=== PATIENT | male | born 1990 | race Two or more races ===

== ENCOUNTER 2023-08-23 10:23 | Outpatient (AMB) | payer OTHER, SELFPAY ==
[2023-08-23 10:24] VITALS: BP 132/80; BMI 32.4
--- NOTE | 2023-08-23 10:24 | A.OFFPC_ITS ---
Vital Signs 08/23/23 10:24 Height 5 ft 11 in Weight 232 lb 0.4 oz BMI 32.4 BP 132/80 Blood Pressure Location Lt brachial Position Sitting Pulse Source Pulse Oximeter Oxygen Delivery Method Room Air Intake Visit Reasons: est care/ annual physical/ discuss ent referral Conference Producer Required: No Allergies No Known Allergies Allergy (Verified 08/23/23 10:37) Medication List - Last Reconciled 08/23/23 by STEFANIA Luna No Known Home Meds Tobacco use date assessed: 08/23/23 Dental Screening Dental Screen Date: 08/23/23 Did you have a dental visit in the last 12 months?: Yes Did you have a dental problem in the last 6 months where you did not have access to dental care?: No Was dental information given to patient?: Patient has dentist HPI HPI Comments History of Present Illness Details 33-year-old male new patient presents to [facility] to establish care. Past medical history significant for asthma. Patient reports does not require rescue inhaler frequently states uses inhaler 1 times per month. Patient reports history of enlarged adenoids states at age 13 he had laser surgery in [place] for this, but was told that and maybe, problem again later in life. Patient reports he does snore a lot and would like to see ENT you for further evaluation of his adenoids. Referral entered. Patient denies any daytime somnolence, headaches or periods of apnea while sleeping at this time I do not feel it sleep study is required. Patient declined flu shot. Eye exam recommended. Fasting labs ordered. [facility] Medical History (Updated 08/23/23 @ 10:55 by STEFANIA Luna) Asthma Family History (Updated 08/23/23 @ 10:43 by STEFANIA Luna) Mother Leukemia Father Hypertension Social History (Updated 08/23/23 @ 10:43 by STEFANIA Luna) Housing: Apartment Alcohol intake: current Alcohol intake frequency: a few times a week Alcohol type: wine Patient Tobacco Use Status: Never used Tobacco Substance Use Type: Marijuana service: No Current occupational status: employed Cognitive needs: No Hearing needs: No Vision needs: No Questionnaire PHQ-9 Over the last 2 weeks, how often have you been bothered by any of the following problems? 1. Little interest or pleasure in doing things: not at all 2. Feeling down, depressed, or hopeless: not at all 3. Trouble falling or staying asleep, or sleeping too much: not at all 4. Feeling tired or having little energy: not at all 5. Poor appetite or overeating: not at all 6. Feeling bad about yourself - or that you are a failure or have let yourself or your family down: not at all 7. Trouble concentrating on things, such as reading the newspaper or watching television: not at all 8. Moving or speaking so slowly that other people could have noticed. Or the opposite - being so fidgety or restless that you have been moving around a lot more than usual: not at all 9. Thoughts that you would be better off or of hurting yourself in some way: not at all Total score: 0 Depression Screening Interpretation: Negative Depression Screening Done: Yes 37931 - PHQ-9 Billing: Yes Source: Developed by Drs. Orion Fontaine, Gia Morris, Rob Valdovinos and colleagues, with an educational jacob from [employer]. AUDIT C Alcohol Use Questionnaire (AUDIT-C) 1. How often do you have a drink containing alcohol?: 2-3 times a week 2. How many drinks containing alcohol do you have on a typical day when you are drinking?: 1 or 2 3. How often do you have six or more drinks on one occasion?: Never Total Score: 3 OLIVIER-7 AMB Questionnaire OLIVIER-7 Date OLIVIER - 7 assessed: 08/23/23 Feeling nervous, anxious, or on edge: 0 = Not at all Not being able to stop or control worryin = Not at all Worrying too much about different things: 0 = Not at all Trouble relaxin = Not at all Being so restless that it is hard to sit still: 0 = Not at all Becoming easily annoyed or irritable: 0 = Not at all Feeling afraid as if something awful might happen: 0 = Not at all Total OLIVIER-7 score (0-4 normal; 5-9 mild; 10-14 moderate; 15-21 severe): 0 Source: Developed by Drs. Orion Fontaine, Gia Morris, Rob Valdovinos and colleagues, with an educational jacob from [employer]. OLIVIER-7 Assessment Billing OLIVIER-7 Assessment Tool: OLIVIER-7 Assessment 97354 Review of Systems Const Denies chills, Denies fatigue, Denies fever(s) and Denies poor appetite Eyes Denies no additional complaints ENT Reports Normal hearing present Card Denies chest pain, Denies syncope, Denies rapid heart rate and Denies dyspnea Resp Denies cough and Denies dyspnea GI Denies change in stool character, Denies constipation, Denies diarrhea, Denies nausea and Denies vomiting Denies dysuria, Denies urinary frequency and Denies urinary urgency Neuro Reports Normal hearing present, Denies confusion and Denies syncope Psych Denies confusion Endo Denies fatigue Physical exam (Primary Care) Vital Signs: Last Vital Signs BP 132/80 08/23/23 10:24 Oxygen Delivery Method Room Air 08/23/23 10:24 BMI result Body Mass Index 32.4 Tobacco/Smoking Status: Tobacco use Status Tobacco use date assessed 08/23/23 08/23/23 10:25 Patient Tobacco Use Status Never used Tobacco 08/23/23 10:25 PHQ-9: PHQ-9 Score PHQ-9: Total score 0 08/23/23 10:25 Depression Screening Interpretation: Negative Const General: No confusion Orientation/consciousness: No confusion HENMT Head: Yes normocephalic and Yes atraumatic Ears: external ears normal and TM's normal bilaterally General nose exam: Normal external nose present and Normal nasal mucous membranes and turbinates present Face and sinus: Yes normal facial exam and Yes sinuses nontender Mouth: moist mucous membranes Throat: Yes tonsils normal Eyes Conjunctivae: conjunctivae normal Sclerae: sclerae normal Pupils: Equal, round and reactive pupils present and Pupils normal by confrontation EOM: EOMs intact bilaterally Direct Ophthalmoscopy: normal light reflex Neck Neck: Yes no lymphadenopathy and Yes supple Thyroid: Thyroid normal Chest Chest palpation & inspection: normal inspection of the chest Resp Effort & Inspection: normal respiratory effort Auscultation: clear to auscultation bilaterally, no crackles, no rhonchi and no wheezes Cardio Rate: regular rate Rhythm: regular rhythm Peripheral pulses: radial pulses present and dorsalis pedis present GI Inspection: Yes normal to inspection Palpation (GI): Soft to palpation, nontender and No hepatosplenomegaly present Auscultation: normoactive bowel sounds Skin General skin exam: no rashes or lesions noted Neuro General: No confusion Cranial nerves: Yes Equal, round and reactive pupils present and Yes Normal hearing present Cognition (Neuro): normal cognition Gait exam (Neuro): Normal gait present Motor exam (neuro): 5/5 motor strength present throughout Deep tendon reflexes (DTR's): Right brachioradialis reflex intensity grade: 2+, Left brachioradialis reflex intensity grade: 2+, Right patellar reflex intensity grade: 2+ and Left patellar reflex intensity grade: 2+ Extrem General: No edema Assessment and Plan Assessment & Plan (1) Adenoid hypertrophy: Code(s): J35.2 - Hypertrophy of adenoids Plan: Referral entered to [facility]. (2) Physical exam, annual: Code(s): Z00.00 - Encounter for general adult medical examination without abnormal findings Plan: Follow-up 1 year for annual exam. (3) Asthma: Code(s): J45.909 - Unspecified asthma, uncomplicated Plan: Albuterol inhaler sent to patient's pharmacy. Plan Follow up in 1 year. Orders: Orders Complete Blood Count no Diff Today Z13.0 - Encounter for screening for diseases of the blood and blood-forming organs and certain disorders involving the immune mechanism Comprehensive [place]. Panel Fast Today Z00.00 - Encounter for general adult medical examination without abnormal findings TSH reflex Free T4 Today Z13.29 - Encounter for screening for other suspected endocrine disorder Lipid Panel Today Z13.220 - Encounter for screening for lipoid disorders Referrals Ear/Nose/Throat Referral J35.2 - Hypertrophy of adenoids Medications: New albuterol sulfate 90 mcg/actuation 2 puffs inhalation Q4-6H PRN 6.7 grams 0RF shortness of breath or wheezing J45.909 - Unspecified asthma, uncomplicated Coding Level of Care Code New Pt Prev Care 18-39yr([id number] Diagnoses Adenoid hypertrophy J35.2 Physical exam, annual Z00.00 Asthma J45.909 Additional Codes OLIVIER-7 Assessment Billing - OLIVIER-7 Assessment Tool: OLIVIER-7 Assessment 26232 ([id number])
== END 2023-08-23 10:53 | disposition home or self-care (01) ==
PROVIDERS: PCP Nurse Practitioner Family; Visit Provider Nurse Practitioner Family
DX: J35.2 Hypertrophy of adenoids (principal); Z00.00 Encounter for general adult medical examination without abnormal findings; J45.909 Unspecified asthma, uncomplicated
CPT/HCPCS: 99385

== ENCOUNTER 2023-09-05 07:54 | Outpatient (REF) | payer OTHER, SELFPAY ==
[2023-09-05 10:16] LABS: Hematocrit 50.5 % (42.0-52.0); Hemoglobin 16.6 g/dl (14.0-18.0); Mean Corpuscular HGB Conc 32.9 g/dl (31.0-36.0); Mean Corpuscular Hemoglobin 28.6 pg (27.0-33.0); Mean Corpuscular Volume 86.9 fL (80.0-98.0); Mean Platelet Volume 10.5 fL (9.4-12.4); Platelet Count 269 X10*3/uL (160-400); Red Blood Count 5.81 X10*6/uL (4.60-5.80); Red Cell Distribution Width 12.8 % (11.0-16.0); White Blood Count 5.5 X10*3/uL (4.8-10.8)
[2023-09-05 10:57] LABS: Alanine Aminotransferase 29 U/L (0-40); Albumin Level 4.5 g/dL (3.5-5.0); Alkaline Phosphatase 112 U/L (39-117); Anion Gap 12 (12-20); Aspartate Amino Transferase 26 U/L (5-37); Bilirubin Total 0.4 mg/dL (0.0-1.0); Blood Urea Nitrogen 12 mg/dL (9-16); Calcium 9.6 mg/dL (8.4-10.2); Carbon Dioxide 27 mmol/L (22-29); Chloride 105 mmol/L (96-108); Cholesterol 227 mg/dL (<200); Estimated Glomerular Filt Rate > 60; Glucose Fasting 95 mg/dL (60-99); HDL Cholesterol 31 mg/dL (>40); LDL Cholesterol Calculated 134 mg/dL (<100); Sodium 140 mmol/L (135-145); Triglycerides 314 mg/dL (<150)
[2023-09-05 11:16] LABS: TSH reflex Free T4 1.71 uIU/mL (0.32-4.0)
== END 2023-09-05 07:55 | disposition home or self-care (01) ==
LOC: HO.LAB 07:54
PROVIDERS: PCP Nurse Practitioner Family; Visit Provider Nurse Practitioner Family
DX: Z00.00 Encounter for general adult medical examination without abnormal findings (principal); Z13.0 Encounter for screening for diseases of the blood and blood-forming organs and certain disorders involving the immune mechanism; Z13.220 Encounter for screening for lipoid disorders; Z13.29 Encounter for screening for other suspected endocrine disorder
CPT/HCPCS: 36415; 80053; 80061; 84443; 85027

== ENCOUNTER 2023-11-26 10:00 | Outpatient (AMB) | payer OTHER, SELFPAY ==
--- NOTE | 2023-11-26 10:14 | MHC.PC.OV ---
Vital Signs 11/26/23 10:15 Height 5 ft 11 in Weight 230 lb BMI 32.1 BP 122/66 Blood Pressure Location Lt brachial Position Sitting Pulse 77 Pulse Source Pulse Oximeter Pulse Oximetry (%) 97 Oxygen Delivery Method Room Air Intake Visit Reasons: follow up/referral Intake Note: Patient is here to follow up on insomnia and medication review. Requesting for sleep study for possible sleep apena Referral Coordinator Required: No Driver/Sales Workers: Not Required per policy Accompanied by: Self / Same As Patient Allergies No Known Allergies Allergy (Verified 11/26/23 10:15) Tobacco use date assessed: 11/26/23 Dental Screening Dental Screen Date: 11/26/23 Did you have a dental visit in the last 12 months?: No Did you have a dental problem in the last 6 months where you did not have access to dental care?: No Was dental information given to patient?: No HPI follow up/referral HPI Details 33-year-old male presents to the office to discuss his medical problems. I am assuming his care as his previous provider has left the practice. Patient was given an ENT referral to have an evaluation of his nasal septum. He reports noisy breathing and frequent closure of 1 of the nostrils. The appointment still has not materialized. He has had adenoidectomy as a young child. Of late, he is complaining of fatigue. Has noisy breathing at night. Does not feel refreshed when he wakes up. [facility] Medical History (Updated 11/26/23 @ 11:11 by Joseluis Garcia MD) Deviated nasal septum Obstructive sleep apnea Asthma Surgical History (Updated 11/26/23 @ 10:20 by MARCELO Shabazz) No pertinent past surgical history Family History (Updated 11/26/23 @ 10:14 by MARCELO Shabazz) Mother Leukemia Father Hypertension Social History (Updated 11/26/23 @ 10:20 by MARCELO Shabazz) Housing: Apartment Alcohol intake: current Alcohol intake frequency: a few times a week Alcohol type: wine Patient Tobacco Use Status: Never used Tobacco e-Cigarette/Vaping Use: Never Used Second Hand Smoke Exposure: Yes Substance Use Type: Marijuana service: No Current occupational status: employed Cognitive needs: No Hearing needs: No Vision needs: No Questionnaire PHQ-9 Over the last 2 weeks, how often have you been bothered by any of the following problems? 1. Little interest or pleasure in doing things: not at all 2. Feeling down, depressed, or hopeless: not at all 3. Trouble falling or staying asleep, or sleeping too much: not at all 4. Feeling tired or having little energy: not at all 5. Poor appetite or overeating: not at all 6. Feeling bad about yourself - or that you are a failure or have let yourself or your family down: not at all 7. Trouble concentrating on things, such as reading the newspaper or watching television: not at all 8. Moving or speaking so slowly that other people could have noticed. Or the opposite - being so fidgety or restless that you have been moving around a lot more than usual: not at all 9. Thoughts that you would be better off or of hurting yourself in some way: not at all Total score: 0 Depression Screening Interpretation: Negative Depression Screening Done: Yes Source: Developed by Drs. Orion Fontaine, Gia Morris, Rob Valdovinos and colleagues, with an educational jacob from [employer]. Thrive Questionnaire Date Thrive assessed: 11/26/23 I am a: Patient What is your living situation today?: I have a steady place to live Within the past 12 months, did the food you bought not last and you didn't have the money to get more?: Never true Within the past 12 months, did you worry whether your food would run out before you got money to buy more?: Never true Do you have trouble paying for medicines?: No Do you have trouble getting transportation to medical appointments?: No Do you have trouble paying your heating and electricity bill?: No Do you have trouble taking care of your child, family member or friend?: No Do you have trouble with day-to-day activities such as bathing, preparing meals, shopping, managing finances, etc.?: No Are you currently unemployed and looking for a job?: No Are you interested in more education?: No Currently or been in a relationship where the following occur: no concerns reported THRIVE Score: 0 AUDIT C Alcohol Use Questionnaire (AUDIT-C) 1. How often do you have a drink containing alcohol?: 2-3 times a week 2. How many drinks containing alcohol do you have on a typical day when you are drinking?: 1 or 2 Total Score: 3 OLIVIER-7 AMB Questionnaire OLIVIER-7 Date OLIVIER - 7 assessed: 11/26/23 Feeling nervous, anxious, or on edge: 0 = Not at all Not being able to stop or control worryin = Not at all Worrying too much about different things: 0 = Not at all Trouble relaxin = Not at all Being so restless that it is hard to sit still: 0 = Not at all Becoming easily annoyed or irritable: 0 = Not at all Feeling afraid as if something awful might happen: 0 = Not at all Total OLIVIER-7 score (0-4 normal; 5-9 mild; 10-14 moderate; 15-21 severe): 0 Source: Developed by Drs. Orion Fontaine, Gia Morris, Rob Valdovinos and colleagues, with an educational jacob from [employer]. Physical exam (Primary Care) Vital Signs: Last Vital Signs Pulse 77 11/26/23 10:15 BP 122/66 11/26/23 10:15 Pulse Ox 97 11/26/23 10:15 Oxygen Delivery Method Room Air 11/26/23 10:15 BMI result Body Mass Index 32.1 Tobacco/Smoking Status: Tobacco use Status Tobacco use date assessed 11/26/23 11/26/23 10:22 Patient Tobacco Use Status Never used Tobacco 11/26/23 10:22 e-Cigarette/Vaping Use Never Used 11/26/23 10:22 PHQ-9: PHQ-9 Score PHQ-9: Total score 0 11/26/23 10:22 Depression Screening Interpretation: Negative Thrive Assessment: Date of Thrive Assessment Date Thrive assessed 11/26/23 11/26/23 10:22 Currently or been in a relationship where the following occur: no concerns reported Const General: cooperative and healthy appearing Nutritional Appearance: well nourished Orientation/consciousness: patient oriented x3 Limitations: no limitations HENMT Other: Nose: Deviated septum. No polyps seen. Head: Yes normal to inspection Eyes General: appearance normal, both eyes and all related structures Neck Neck: Yes normal visual inspection Chest Chest palpation & inspection: normal palpation of entire chest wall Resp Effort & Inspection: normal respiratory effort Neuro General: patient oriented x3 Assessment and Plan Assessment & Plan (1) Obstructive sleep apnea: Code(s): G47.33 - Obstructive sleep apnea (adult) (pediatric) Plan: A sleep study has been requested. (2) Hypercholesteremia: Code(s): E78.00 - Pure hypercholesterolemia, unspecified Plan: Blood work reviewed. Atorvastatin has been started. Counseling on the importance of diet and exercise done. (3) Deviated nasal septum: Code(s): J34.2 - Deviated nasal septum Plan: Patient was encouraged to keep his ENT appointment. Orders: Referrals Sleep Medicine Referral G47.33 - Obstructive sleep apnea (adult) (pediatric) Medications: New atorvastatin 10 mg PO BEDTIME 90 tabs 1RF Coding Level of Care Code Est Pt Level 4 (47930) Diagnoses Obstructive sleep apnea G47.33 Hypercholesteremia E78.00 Deviated nasal septum J34.2
[2023-11-26 10:15] VITALS: BP 122/66; PULSE 77; O2SAT 97; BMI 32.1
== END 2023-11-26 11:02 | disposition home or self-care (01) ==
PROVIDERS: PCP Nurse Practitioner Family; Visit Provider Internal Medicine
DX: G47.33 Obstructive sleep apnea (adult) (pediatric) (principal); E78.00 Pure hypercholesterolemia, unspecified; J34.2 Deviated nasal septum
CPT/HCPCS: 99214

== ENCOUNTER 2024-03-19 08:02 | Outpatient (AMB) | payer OTHER, SELFPAY ==
[2024-03-19 08:05] VITALS: BP 128/90; PULSE 86; O2SAT 99; BMI 31.7
--- NOTE | 2024-03-19 08:05 | MHC.OFFVIS ---
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 I'm having a hard time falling asleep if I don't take cbd i cant sleep Allergies No Known Allergies Allergy (Verified 03/19/24 08:09) Medication List - Last Reconciled 03/19/24 by Dafne Bashir, STEFANIA albuterol sulfate 90 mcg/actuation 2 puffs inhalation Q4-6H PRN atorvastatin 10 mg PO BEDTIME HPI Comments Details: 33-yr-old male presents for new in-person patient visit for sleep consultation. Pt reports he has had sleep issues for a long time, but recently his boss was concerned that he now looks more tired. He states he is overall not sleeping well. He snores, has difficulty inhaling well at night. He often has difficulty falling asleep and maintaining sleep- feels he does not sleep more than 4-5 hours per night. He did see ENT, who gave him a medication and nasal spray (unsure of the name), which have helped his breathing some. Sleep questionnaire: Have you ever been diagnosed with a sleep disorder? No Have you ever had a sleep study in the past? No Have you ever been treated for a sleep disorder? No Do you take medications for a sleep disorder? Using Melatonin and CBD- which helps some Do you snore? Yes Do you wake up gasping at night? Yes, at times Do you have episodes of apneas? Possibly If yes, are they witnessed? No Do you have episodes of nocturnal chest pain or dyspnea? Can have asthma s/s at night. Do you have difficulty initiating sleep? Yes Do you have difficulty maintaining sleep? Yes Do you wake up tired? Yes Do you have headaches upon awakening? No Do you wake up with dry mouth or throat? More recently this has been happening Do you have GERD? Only if eats too late Do you have daytime tiredness or fatigue? Yes Do you have nocturnal leg cramps? No Do you have symptoms of restless legs? No Do you act out your dreams? No. Denies parasomnias. Do you have bruxism? No Sleep hygiene questionnaire: What is your usual sleep routine? Usual bedtime is at 9-10pm and watches TV but does not sleep until 12-1am; Usual wakeup time is at 6-7am. Do you take naps? No- rarely Is your sleep environment cool, dark, and quiet? Yes. Has upgraded his mattresses. Do you exercise? Walks, trying to be more active. Do you take caffeine or other stimulants? Takes mushroom supplement drink in the am. Do you use electronics in bed? Watches TV in bed. May use- trying to reduce this. 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 Hypersomnolence questionnaire: Do you easily fall asleep when inactive? Yes Have you ever had episodes of sudden weakness? No Have you ever had episodes of sudden weakness associated with strong emotions? No [facility] Medical History (Updated 03/19/24 @ 08:46 by STEFANIA Fatima) Deviated nasal septum Asthma Surgical History No pertinent past surgical history Family History Mother Leukemia Father Hypertension Social History Housing: Apartment Alcohol intake: current Alcohol intake frequency: a few times a week Alcohol type: wine Patient Tobacco Use Status: Never used Tobacco e-Cigarette/Vaping Use: Never Used Second Hand Smoke Exposure: Yes Substance Use Type: Marijuana service: No Current occupational status: employed Cognitive needs: No Hearing needs: No Vision needs: No Review of Systems Const All systems reviewed & are unremarkable except as noted in HPI and below Physical Exam Vital Signs: Last Vital Signs Pulse 86 03/19/24 08:05 BP 128/90 H 03/19/24 08:05 Pulse Ox 99 03/19/24 08:05 Oxygen Delivery Method Room Air 03/19/24 08:05 BMI result Body Mass Index 31.7 Const General: no acute distress Orientation/consciousness: patient oriented x3 HEENT Other: Mallampati stage III Mild bilateral cheek hypertrophy Resp Effort & Inspection: able to speak in complete sentences Neuro General: patient oriented x3 Psych Mental Status: mental status grossly normal Speech and movement: Clear speech present Attitude: cooperative Assessment & Plan Assessment & Plan (1) Snoring: Code(s): R06.83 - Snoring Category: Medical (2) Sleep difficulties: Code(s): G47.9 - Sleep disorder, unspecified Category: Medical (3) Excessive daytime sleepiness: Code(s): G47.19 - Other hypersomnia Category: Medical (4) Fatigue: Code(s): R53.83 - Other fatigue Category: Medical Plan Pt advised to undergo HST to assess for sleep apnea. Pt may benefit from reading/listening to Say [place] to Insomnia by Dr Kodak Faith or similar CBTi resources to optimize his sleep hygiene. Continue allergy tx regimen- originally ordered by ENT. Pt has signs of bruxism, however he denies- will monitor. Pt seen in collaboration w/ Dr Dariela Nieto Orders: Orders RT home sleep study Today G47.19 - Other hypersomnia, G47.9 - Sleep disorder, unspecified, R06.83 - Snoring, R53.83 - Other fatigue Coding Level of Care Code New Pt Level 4 (00457) Diagnoses Snoring R06.83 Sleep difficulties G47.9 Excessive daytime sleepiness G47.19 Fatigue R53.83 [place] Sleepiness Scale Questions Sitting and reading: moderate chance of dozing Watching TV: moderate chance of dozing Sitting inactive in a theater, movie etc.: moderate chance of dozing As a passenger in a car for an hour without break: would never doze Lying down in the afternoon when circumstances permit: moderate chance of dozing Sitting and talking to someone: would never doze Sitting quietly after lunch without alcohol: moderate chance of dozing In a car, while stopped for a few minutes in the traffic: would never doze ESS < 10: normal, ESS > 12: pathologic: 10
== END 2024-03-19 08:47 | disposition home or self-care (01) ==
PROVIDERS: PCP Nurse Practitioner Family; Visit Provider Nurse Practitioner Family
DX: R06.83 Snoring (principal); G47.9 Sleep disorder, unspecified; G47.19 Other hypersomnia; R53.83 Other fatigue
CPT/HCPCS: 99204

== ENCOUNTER → 2024-03-19 08:02 | Outpatient (BNVA) | payer OTHER, SELFPAY | PROVIDERS: PCP Nurse Practitioner Family; Visit Provider Nurse Practitioner Family ==

== ENCOUNTER → 2024-06-02 09:00 | Outpatient (REF) | payer OTHER, SELFPAY | LOC: HO.SL 09:00 | PROVIDERS: Visit Provider Nurse Practitioner Family | DX: G47.33 Obstructive sleep apnea (adult) (pediatric) (principal); R06.83 Snoring; G47.19 Other hypersomnia; R53.83 Other fatigue | CPT/HCPCS: 95806 ==

== ENCOUNTER → 2024-06-02 09:22 | Outpatient (BNV) | payer OTHER, SELFPAY | PROVIDERS: Visit Provider Psychiatry & Neurology Neurology | DX: G47.33 Obstructive sleep apnea (adult) (pediatric) (principal) | CPT/HCPCS: 95806 ==

== ENCOUNTER 2024-08-25 14:58 | Outpatient (AMB) | payer OTHER, SELFPAY ==
[2024-08-25 15:01] VITALS: BP 138/80; PULSE 89; O2SAT 98; BMI 31.7
--- NOTE | 2024-08-25 15:01 | MHC.PC.OV ---
Vital Signs 08/25/24 15:01 Height 5 ft 11 in Weight 227 lb BMI 31.7 BP 138/80 Blood Pressure Location Lt brachial Position Sitting Pulse 89 Pulse Source Pulse Oximeter Pulse Oximetry (%) 98 Oxygen Delivery Method Room Air Intake Visit Reasons: PE Intake Note: Patient here for a physical exam Bed Maker Required: No Accompanied by: Self / Same As Patient Allergies No Known Allergies Allergy (Verified 08/25/24 15:13) Medication List - Last Reconciled 08/25/24 by Cayla Lancaster MD albuterol sulfate 90 mcg/actuation 2 puffs inhalation Q4-6H PRN atorvastatin 10 mg PO BEDTIME Tobacco use date assessed: 11/26/23 Dental Screening Dental Screen Date: 08/25/24 Did you have a dental visit in the last 12 months?: Yes Did you have a dental problem in the last 6 months where you did not have access to dental care?: No Was dental information given to patient?: Patient has dentist HPI PE HPI Details 34-year-old obese male with a history of asthma, hypercholesterolemia coming in for physical exam last seen in August 2023 and referred to ENT for adenoid hypertrophy. Patient had sleep study done in 06/02/2024 showing mild degree of sleep apnea AHI of 9 trial of CPAP given for 5-20 cm water. Review of the notes was seen in February 23 for question of sleep study. Patient cannot tolerate CPAP. snoring seen by ENT but was told get the sleep study. occ waking up while sleeping. [facility] Medical History (Updated 08/25/24 @ 16:10 by Cayla Lancaster MD) Fatigue Excessive daytime sleepiness Sleep difficulties Deviated nasal septum Asthma Surgical History No pertinent past surgical history Family History Mother Leukemia Father Hypertension Social History (Updated 08/25/24 @ 16:03 by Cayla Lancaster MD) Housing: Apartment Alcohol intake: current Alcohol intake frequency: a few times a week Alcohol type: wine Comment: 2 days weekend 5 drinks Patient Tobacco Use Status: Never used Tobacco Years Smoked: weed e-Cigarette/Vaping Use: Never Used Second Hand Smoke Exposure: Yes Substance Use Type: Marijuana service: No Current occupational status: employed Current occupational exposures/hazards: No Cognitive needs: No Hearing needs: No Vision needs: No Questionnaire PHQ-9 Over the last 2 weeks, how often have you been bothered by any of the following problems? 1. Little interest or pleasure in doing things: not at all 2. Feeling down, depressed, or hopeless: not at all 3. Trouble falling or staying asleep, or sleeping too much: nearly every day 4. Feeling tired or having little energy: nearly every day 5. Poor appetite or overeating: not at all 6. Feeling bad about yourself - or that you are a failure or have let yourself or your family down: not at all 7. Trouble concentrating on things, such as reading the newspaper or watching television: not at all 8. Moving or speaking so slowly that other people could have noticed. Or the opposite - being so fidgety or restless that you have been moving around a lot more than usual: not at all 9. Thoughts that you would be better off or of hurting yourself in some way: not at all Total score: 6 Source: Developed by Drs. Orion Fontaine, Gia Morris, Rob Valdovinos and colleagues, with an educational jacob from [employer]. Thrive Questionnaire Date Thrive assessed: 08/25/24 I am a: Patient What is your living situation today?: I have a steady place to live Within the past 12 months, did the food you bought not last and you didn't have the money to get more?: Never true Within the past 12 months, did you worry whether your food would run out before you got money to buy more?: Never true Do you have trouble paying for medicines?: No Do you have trouble getting transportation to medical appointments?: No Do you have trouble paying your heating and electricity bill?: No Do you have trouble taking care of your child, family member or friend?: No Do you have trouble with day-to-day activities such as bathing, preparing meals, shopping, managing finances, etc.?: No Are you currently unemployed and looking for a job?: No Are you interested in more education?: I choose not to answer this question Please select the resources that you would like help with: None Currently or been in a relationship where the following occur: No concerns reported THRIVE Score: 0 AUDIT C Alcohol Use Questionnaire (AUDIT-C) 1. How often do you have a drink containing alcohol?: Monthly or less 2. How many drinks containing alcohol do you have on a typical day when you are drinking?: 3 or 4 3. How often do you have six or more drinks on one occasion?: Less than monthly Total Score: 3 OLIVIER-7 AMB Questionnaire OLIVIER-7 Date OLIIVER - 7 assessed: 08/25/24 Feeling nervous, anxious, or on edge: 0 = Not at all Not being able to stop or control worryin = Not at all Worrying too much about different things: 0 = Not at all Trouble relaxin = Not at all Being so restless that it is hard to sit still: 0 = Not at all Becoming easily annoyed or irritable: 0 = Not at all Feeling afraid as if something awful might happen: 0 = Not at all Total OLIVIER-7 score (0-4 normal; 5-9 mild; 10-14 moderate; 15-21 severe): 0 Source: Developed by Drs. Orion Fontaine, Gia Morris, Rob Valdovinos and colleagues, with an educational jacob from [employer]. Review of Systems Const Denies poor appetite and Denies weakness Eyes Denies no additional complaints ENT Reports Normal hearing present, Denies dizziness, Denies nasal congestion, Denies tinnitus and Denies sore throat Card Denies chest pain, Denies syncope, Denies rapid heart rate and Denies dyspnea Resp Denies cough and Denies dyspnea GI Denies change in stool character, Reports constipation, Denies diarrhea, Denies nausea and Denies vomiting Denies dysuria and Denies urinary frequency Neuro Reports Normal hearing present, Denies confusion, Denies dizziness, Denies syncope and Denies weakness Psych Denies confusion Physical exam (Primary Care) Vital Signs: Last Vital Signs Pulse 89 08/25/24 15:01 BP 138/80 08/25/24 15:01 Pulse Ox 98 08/25/24 15:01 Oxygen Delivery Method Room Air 08/25/24 15:01 BMI result Body Mass Index 31.7 Tobacco/Smoking Status: Tobacco use Status Tobacco use date assessed 11/26/23 08/25/24 15:03 Patient Tobacco Use Status Never used Tobacco 08/25/24 16:03 e-Cigarette/Vaping Use Never Used 08/25/24 16:03 PHQ-9: PHQ-9 Score PHQ-9: Total score 6 08/25/24 15:57 Thrive Assessment: Date of Thrive Assessment Date Thrive assessed 08/25/24 08/25/24 15:16 Currently or been in a relationship where the following occur: No concerns reported Const General: No confusion Orientation/consciousness: No confusion HENMT Head: Yes normocephalic Ears: external ears normal and TM's normal bilaterally Face and sinus: Yes normal facial exam Mouth: moist mucous membranes Throat: Yes tonsils normal Eyes Conjunctivae: conjunctivae normal Pupils: Equal, round and reactive pupils present and Pupil accommodation reflex normal Direct Ophthalmoscopy: normal light reflex Neck Neck: No lymphadenopathy Thyroid: Thyroid normal Chest Chest palpation & inspection: normal inspection of the chest Resp Effort & Inspection: normal respiratory effort and no audible wheezes Auscultation: clear to auscultation bilaterally, no crackles, no wheezes and lung sounds not diminished Cardio Rate: regular rate Rhythm: regular rhythm Peripheral pulses: radial pulses present and dorsalis pedis present GI Palpation (GI): no masses Auscultation: normal bowel sounds and normoactive bowel sounds Rectal Exam - Male: Yes deferred Skin General skin exam: no rashes or lesions noted Rashes: no rashes Neuro General: No confusion Cranial nerves: Yes Equal, round and reactive pupils present and Yes Normal hearing present Cognition (Neuro): normal cognition Gait exam (Neuro): Normal gait present Motor exam (neuro): 5/5 motor strength present throughout Deep tendon reflexes (DTR's): Right brachioradialis reflex intensity grade: 2+, Left brachioradialis reflex intensity grade: 2+, Right patellar reflex intensity grade: 2+ and Left patellar reflex intensity grade: 2+ Extrem General: No edema Office Procedures Flu Questionnaire Does the patient have a severe egg allergy?: No Does the patient have severe life threatening allergies?: No Does the patient have a fever or illness today?: No Has the patient ever had Guillain-[place] Syndrome?: No Has the patient ever had any past reaction to a flu shot?: No Immunizations Fluarix Triv [id number] (PF) 45 mcg (15 mcg x 3)/0.5 mL IM syringe Performing Provider: Cayla Lancaster MD Per[facility] Administered by: DIVYA Dixon on 08/25/24 16:21 Dose Route Admin Location Dispensed Lot Number Expiration Date [facility] District Loss Prevention Manager 0.5 mL IM Right Deltoid 0.5 mL [id number] 04/20/25 07848-841-00 [employer] VIS Given Date VIS Provided VIS Publication Date 08/25/24 Single Vaccine 21 Eligibility Eligibility Date Funding Source Not [facility] Eligible 08/25/24 Private Coding Level of Care Code Est Pt Prev Care 18-39y(27906) Diagnoses Annual physical exam Z00.00 Mild obstructive sleep apnea G47.33 Obesity (BMI 30-39.9) E66.9 Hypercholesteremia E78.00 Mild intermittent asthma without complication J45.20 Asthma complication type: uncomplicated Asthma persistence: intermittent Asthma severity: mild Snoring R06.83 Assessment & Plan Assessment & Plan (1) Annual physical exam: Code(s): Z00.00 - Encounter for general adult medical examination without abnormal findings Category: Medical Plan: Patient is advised to eat healthy, keep well hydrated, keep active and have adequate sleep. (2) Mild obstructive sleep apnea: Comment: May 2024 Code(s): G47.33 - Obstructive sleep apnea (adult) (pediatric) Category: Medical Plan: Patient has followed up with Neurology and was prescribed CPAP 5-20 cm water (3) Obesity (BMI 30-39.9): Code(s): E66.9 - Obesity, unspecified Category: Social Hx Plan: Diet and exercise (4) Hypercholesteremia: Code(s): E78.00 - Pure hypercholesterolemia, unspecified Category: Medical Plan: Avoid fried foods, chicken skin, eggs, butter margarine, pastries and meat. Be it pork or beef they have a lot of cholesterol LDL goal of less than 130 and triglyceride of less than 150 on atorvastatin 10 mg at bedtime (5) Asthma: Code(s): J45.909 - Unspecified asthma, uncomplicated Category: Medical Qualifiers: Asthma complication type: uncomplicated Asthma persistence: intermittent Asthma severity: mild Qualified Code(s): J45.20 - Mild intermittent asthma, uncomplicated Plan: Continue with albuterol as needed (6) Snoring: Code(s): R06.83 - Snoring Category: Medical Plan: adivsed to ff up with ENT in [facility] Orders: Orders Comprehensive Met. Panel 3 Months E78.00 - Pure hypercholesterolemia, unspecified Free T4 (Free Thyroxine) 3 Months E78.00 - Pure hypercholesterolemia, unspecified Vitamin B12 and Folate 3 Months E78.00 - Pure hypercholesterolemia, unspecified Influenza [id number] Immunization Today Z23 - Encounter for immunization Complete Blood Count Auto Diff 3 Months E78. - Pure hypercholesterolemia, unspecified Lipid Panel 3 Months E78.00 - Pure hypercholesterolemia, unspecified Thyroid Stimulating Hormone 3 Months E78.00 - Pure hypercholesterolemia, unspecified Medications: New Fluarix Triv [id number] (PF) (flu vacc [id number] 6mos up(PF)) 0.5 mL IM ONCE 0.5 mL 0RF NS Z23 - Encounter for immunization Refilled atorvastatin 10 mg PO BEDTIME 90 tabs 2RF
== END 2024-08-25 16:19 | disposition home or self-care (01) ==
LOC: HO.HMCH 14:58
PROVIDERS: Visit Provider Internal Medicine
DX: Z00.00 Encounter for general adult medical examination without abnormal findings (principal); G47.33 Obstructive sleep apnea (adult) (pediatric); Z68.31 Body mass index [BMI] 31.0-31.9, adult; E66.9 Obesity, unspecified; E78.00 Pure hypercholesterolemia, unspecified; J45.20 Mild intermittent asthma, uncomplicated; R06.83 Snoring

== ENCOUNTER → 2024-08-25 14:58 | Outpatient (BNVA) | payer OTHER, SELFPAY | PROVIDERS: Visit Provider Internal Medicine | DX: Z00.00 Encounter for general adult medical examination without abnormal findings (principal); G47.33 Obstructive sleep apnea (adult) (pediatric); E66.9 Obesity, unspecified; E78.00 Pure hypercholesterolemia, unspecified; J45.20 Mild intermittent asthma, uncomplicated; R06.83 Snoring; Z79.899 Other long term (current) drug therapy; Z23 Encounter for immunization | CPT/HCPCS: 90471; 90656; 96127 ==

== ENCOUNTER 2024-11-25 14:48 | Outpatient (AMB) | payer OTHER, SELFPAY ==
--- OUTSIDE RECORDS SUMMARY | 2024-11-25 14:51 | XMS_ITS | Data Portability ---
Author Organization [place] - [facility], Allergy Address [address] [address] Assessment Encounter Date Assessment Date Assessment LastModified by Organization Details LastModified Time 04/23/2024 04/23/2024 34-year-old male with history of septoplasty and adenoidectomy presents for follow-up of sinusitis. Symptoms improved with doxycycline. Exam today demonstrates bloody crusting, but no obvious purulence. Given improvement in symptoms, we discussed an extended course of antibiotics. As patient is going to [place], I recommended we switch to Augmentin to reduce risk of photosensitivity associated with doxycycline. He will continue with Flonase and sinus rinses. May also use saline spray and saline gel several times daily. We discussed use of cross hand technique with use of nasal sprays to help prevent epistaxis. We also discussed CT sinus and allergy testing given persistent symptoms. He will follow-up to review the results. [email or web address] Not available 04/23/2024 15:48:32 Plan of Treatment Reminders Order Date Submit Date Provider Last Modified By Organization Details Last Modified Time Details Appointments None recorded. Lab None recorded. Referral None recorded. Procedures allergy testing, skin prick (PROC) 2023 024 [email or web address] Not available 16:00:50 intraderma l allergy skin testing (PROC) 2023 024 [email or web address] Not available 16:00:50 pulmonary function test procedure (PROC) 2023 024 [email or web address] Not available 16:00:50 pulse oximetry (PROC) 2023 024 [email or web address] Not available 16:00:50 Surgeries None recorded. Imaging CT, sinuses, w/o contrast 2023 [facility], [address] [place] [address], [id number], 11:53:51 Medication Orders Augmentin 875 mg-125 mg tablet 2023 [id number], [address] [facility], [place], [address], 15:41:16 Patient TargetsNo targets recorded. Patient InstructionsNo instructions recorded. Reason for Referral None Reported. Results Created Date Observation Date Name Description Value Unit Range Abnormal Flag Note LastModifiedBy Organization Detail LastModifiedTime 04/23/20 CT, sinus es, w/o contr ast No observ ation record ed. [email or web address] [address], [address], 04/25/2024 11:53:52 06/03/20 24 06/02/2024 CT, sinus es, w/o contr ast No observ ation record ed. [email or web address] [facility] [place] [address], [address], 06/04/2024 14:29:43 Result Notes None recorded. Problems Name Problem SNOMED Code Status Onset Date Resolution Date Notes Provider Name and Address Organization Details Recorded Time Nasal congestion 45206851 Active 2023 MADISON SMITH PA-C [address] [place] [address], [place], [address], [facility] [place] 4 15:40:34 Chronic sinusitis 92443944 Active 2023 MADISON SMITH PA-C [address] [address], [place], [address], [facility] - [facility] 15:40:39 Chronic rhinitis 74612464 Active 2023 MADISON SMITH PA-C [address] [facility], [address], [place], [address], [facility] - [facility] [place] 4 15:44:46 Non-allergi c rhinitis 087306856763 Active 2023 MADISON SMITH PA-C [address] [facility] [address], [place], [address], [facility] - [facility] [place] 4 15:44:53 Seasonal allergic rhinitis 150663360 Active 2023 MADISON SMITH PA-C [address] [facility], [address] [facility], [place], [address], [facility] - [facility] [place] 4 15:44:53 Allergic rhinitis 37995982 Active 2023 MADISON SMITH PA-C [address] [facility],[place] [address], [place], [address], [facility] - [facility] [place] 4 15:44:53 Acute sinusitis 89135959 Active 2023 Mika Tracey [facility] [place] 11:51:57 Problem Notes None recorded. Procedures Surgical History None recorded. Imaging Results Imaging Date Name Status LastModified by Organiz ation Details LastModified Time 04/23/2024 CT, sinuses, w/o contrast completed [email or web address] [address], [address], 04/25/2024 11:53:52 06/02/2024 CT, sinuses, w/o contrast completed [place] [id number] [facility] [place] [address], [address], 06/04/2024 14:29:43 Procedure Notes None recorded. Medical Equipment None Reported. Allergies No known drug allergies Medications Name Sig Start Date Stop Date Status Note LastModified by Organization Details LastModified Time Augmentin 875 mg-125 mg tablet Take 1 tablet every 12 hours by oral route for 10 days. 2023 active Not Available Not Available Not Avai lable cetirizine 10 mg tablet active Medication ID: [id number] Bra nd Name: cetirizine Send Method: E-Prescrib ed Subs Allowed: subs OK Special Instructio n: TAKE 1 TABLET BY MOUTH EVERY DAY Medica tionGeneri cName: cetirizine Not Available Not Available Not Available atorvastat in 10 mg tablet active Medication ID: [id number] Bra nd Name: atorvastat in Send Method: E-Prescrib ed Subs Allowed: subs OK Special Instructio n: TAKE 1 TABLET BY MOUTH EVERYDAY AT BEDTIME Me dicationGe nericName: atorvastat in Not Available Not Available Not Available doxycyclin e monohydrat e 100 mg capsule Take 1 capsule by mouth twice a day 2023 active Medication ID: [id number] Dur ation Value: 10 Brand Name: doxycyclin e monohydrat e Send Method: E-Prescrib ed Subs Allowed: subs OK Medicat ionGeneric Name: doxycyclin e monohydrat e Not Available Not Available Not Available fluticason e propionate 50 mcg/actuat ion nasal spray,susp ension active Medication ID: [id number] Bra nd Name: fluticason e propionate Send Method: E-Prescrib ed Subs Allowed: subs OK Special Instructio n: SPRAY 2 SPRAYS INTRANASAL LY DAILY Medi cationGene ricName: fluticason e propionate Not Available Not Available Not Available Vitals Date Recorded Body height Body mass index (BMI) Body weight Provider Name and Address Organization Details Last Updated DateTime 04/23/2024 180.34 cm 31.5 kg/m2 611835.88 g Amanda Terrell [place] - [facility] 04/23/2024 15:30:02 Social History None recorded. Functional Status None recorded. Mental Status None recorded. Family History Nothing Reported. Medical History No medical history recorded. Past Encounters Encounter ID Performer Location Encounter Start Date Encounter Closed Date Diagnosis/Indication Diagnosis SNOMED-CT Code Diagnosis ICD10 Code Diagnosis Note [id number] CORONA RAMIREZ MD [facility] [address] [address] 04/23/2024 15:05:31 04/23/2024 15:36:39 Nasal congestion 46531803 R09.81 Chronic sinusitis 889521 00 J32.9 Health Concerns Section Related Observation LastModified by Organization Detai ls LastModified Time None Recorded Concern Status LastModified by Organization Details LastModified Time None Recorded Advance Directives Directive None Recorded Payers Encounter Date Sequence Insurance Name Policy Number Policy Madrigal Covered Member ID Madrigal Member ID Guarantor Name 04/23/[address] [place] [address] [id number] Dewey Holcomb [id number] Dewey Holcomb Notes Date Note Type Note Provider Name and Address Organization Details Recorded Time 04/23/2024 text/html 34-year-old male presents for follow-up of sinusitis. At the previous visit, nasopharyngoscopy demonstrated 1+ septal deviation to the right and purulent nasal drainage. A 10-day course of doxycycline was prescribed. He reports improvement in his symptoms but does note some intermittent green nasal drainage and nasal congestion. Has been using sinus rinses and Flonase daily. History of adenoidectomy and septoplasty about 15 years ago while living in [place]. CORONA RAMIREZ MD [address] [place] [address], [phone], [facility] - [facility] 04/24/2024 22:26:06
[2024-11-25 15:03] VITALS: BP 122/78; PULSE 86; O2SAT 98; BMI 31.5
--- NOTE | 2024-11-25 15:03 | A.OFFPC_ITS ---
Vital Signs 11/25/24 15:03 Height 5 ft 11 in Weight 226 lb BMI 31.5 BP 122/78 Blood Pressure Location Lt brachial Position Sitting Pulse 86 Pulse Source Pulse Oximeter Pulse Oximetry (%) 98 Oxygen Delivery Method Room Air Intake Visit Reasons: cholesterol snoring Intake Note: Needs refill on asthma pump Allergies No Known Allergies Allergy (Verified 11/25/24 15:04) Tobacco use date assessed: 11/25/24 Dental Screening Dental Screen Date: 11/25/24 Did you have a dental visit in the last 12 months?: Yes Did you have a dental problem in the last 6 months where you did not have access to dental care?: No Was dental information given to patient?: Patient has dentist HPI cholesterol snoring HPI Details 3-4 x a week The patient is a 34-year-ol d male presenting with asthma and hypercholesterolemia. The patient has a history of asthma since childhood, which he manages with an albuterol inhaler. He reports using the inhaler three to four times a week, primarily at night, but has not had severe attacks recently. The patient denies symptoms such as fever and coughing, and does not frequently experience wheezing. Obstructive sleep apnea was diagnosed as mild during a sleep study conducted in May 2024. The patient owns a CPAP machine but reports using it inconsistently due to difficulty breathing. A history of hypercholesterolemia was noted, with very high cholesterol levels in the past. Previous blood work in 2022 indicated normal blood count, electrolytes, renal function with creatinine of 1.1, normal blood sugar, normal liver function, and normal thyroid function. The patient is currently on atorvastatin for cholesterol management and has been making lifestyle modifications for better diet and exercise. He reports improved dietary habits but finds it challenging to maintain them consistently. COUNTS INCLUDE 234 BEDS AT THE [facility] Medical History (Updated 08/25/24 @ 16:10 by Cayla Lancaster MD) Fatigue Excessive daytime sleepiness Sleep difficulties Deviated nasal septum Asthma Surgical History No pertinent past surgical history Family History Mother Leukemia Father Hypertension Social History (Updated 08/25/24 @ 16:03 by Cayla Lancaster MD) Housing: Apartment Alcohol intake: current Alcohol intake frequency: a few times a week Alcohol type: wine Comment: 2 days weekend 5 drinks Patient Tobacco Use Status: Never used Tobacco Tobacco use type: Cigarette Years Smoked: weed e-Cigarette/Vaping Use: Never Used Second Hand Smoke Exposure: Yes Substance Use Type: Marijuana service: No Current occupational status: employed Current occupational exposures/hazards: No Cognitive needs: No Hearing needs: No Vision needs: No Questionnaire PHQ-9 Over the last 2 weeks, how often have you been bothered by any of the following problems? 1. Little interest or pleasure in doing things: not at all 2. Feeling down, depressed, or hopeless: not at all 3. Trouble falling or staying asleep, or sleeping too much: nearly every day 4. Feeling tired or having little energy: nearly every day 5. Poor appetite or overeating: not at all 6. Feeling bad about yourself - or that you are a failure or have let yourself or your family down: not at all 7. Trouble concentrating on things, such as reading the newspaper or watching television: not at all 8. Moving or speaking so slowly that other people could have noticed. Or the opposite - being so fidgety or restless that you have been moving around a lot more than usual: not at all 9. Thoughts that you would be better off or of hurting yourself in some way: not at all Total score: 6 Depression Screening Interpretation: Positive Depression Screening Done: Yes 76026 - PHQ-9 Billing: Yes Source: Developed by Drs. Orion Fontaine, Gia Morris, Rob Valdovinos and colleagues, with an educational jacob from [employer]. Thrive Questionnaire Date Thrive assessed: 11/25/24 I am a: Patient What is your living situation today?: I have a steady place to live Within the past 12 months, did the food you bought not last and you didn't have the money to get more?: Never true Within the past 12 months, did you worry whether your food would run out before you got money to buy more?: Never true Do you have trouble paying for medicines?: No Do you have trouble getting transportation to medical appointments?: No Do you have trouble paying your heating and electricity bill?: No Do you have trouble taking care of your child, family member or friend?: No Do you have trouble with day-to-day activities such as bathing, preparing meals, shopping, managing finances, etc.?: No Are you currently unemployed and looking for a job?: No Are you interested in more education?: I choose not to answer this question Please select the resources that you would like help with: None Currently or been in a relationship where the following occur: No concerns reported THRIVE Score: 0 AUDIT C Alcohol Use Questionnaire (AUDIT-C) 1. How often do you have a drink containing alcohol?: Monthly or less 2. How many drinks containing alcohol do you have on a typical day when you are drinking?: 3 or 4 3. How often do you have six or more drinks on one occasion?: Less than monthly Total Score: 3 OLIVIER-7 AMB Questionnaire OLIVIER-7 Date OLIVIER - 7 assessed: 11/25/24 Feeling nervous, anxious, or on edge: 0 = Not at all Not being able to stop or control worryin = Not at all Worrying too much about different things: 0 = Not at all Trouble relaxin = Not at all Being so restless that it is hard to sit still: 0 = Not at all Becoming easily annoyed or irritable: 0 = Not at all Feeling afraid as if something awful might happen: 0 = Not at all Total OLIVIER-7 score (0-4 normal; 5-9 mild; 10-14 moderate; 15-21 severe): 0 Source: Developed by Drs. Orion Fontaine, Gia Morris, Rob Valdovinos and colleagues, with an educational jacob from [employer]. Physical exam (Primary Care) Vital Signs: Last Vital Signs Pulse 86 11/25/24 15:03 BP 122/78 11/25/24 15:03 Pulse Ox 98 11/25/24 15:03 Oxygen Delivery Method Room Air 11/25/24 15:03 BMI result Body Mass Index 31.5 Tobacco/Smoking Status: Tobacco use Status Tobacco use date assessed 11/25/24 11/25/24 15:11 Patient Tobacco Use Status Never used Tobacco 11/25/24 15:11 Tobacco use type Cigarette 11/25/24 15:11 e-Cigarette/Vaping Use Never Used 11/25/24 15:11 PHQ-9: PHQ-9 Score PHQ-9: Total score 6 11/25/24 15:30 Depression Screening Interpretation: Positive Thrive Assessment: Date of Thrive Assessment Date Thrive assessed 11/25/24 11/25/24 15:11 Currently or been in a relationship where the following occur: No concerns reported Const General: alert; No acute distress Eyes Conjunctivae: conjunctivae normal Resp Auscultation: clear to auscultation bilaterally Cardio Rate: regular rate Rhythm: regular rhythm GI Inspection: Yes normal to inspection Extrem General: Yes normal to inspection and No edema Coding Level of Care Code Est Pt Level 4 (81969) Diagnoses Obesity (BMI 30-39.9) E66.9 Mild intermittent asthma without complication J45.20 Asthma complication type: uncomplicated Asthma persistence: intermittent Asthma severity: mild Hypercholesteremia E78.00 Additional Codes PHQ-9 - 36928 - PHQ-9 Billing: Yes ([id number]) Assessment & Plan Assessment & Plan (1) Obesity (BMI 30-39.9): Code(s): E66.9 - Obesity, unspecified Category: Social Hx (2) Asthma: Code(s): J45.909 - Unspecified asthma, uncomplicated Category: Medical Qualifiers: Asthma complication type: uncomplicated Asthma persistence: intermittent Asthma severity: mild Qualified Code(s): J45.20 - Mild intermittent asthma, uncomplicated (3) Hypercholesteremia: Code(s): E78.00 - Pure hypercholesterolemia, unspecified Category: Medical Plan - Asthma: Prescribe a controller inhaler for regular use, to be taken twice daily. Continue use of albuterol inhaler as a rescue inhaler when needed. Patient advised to rinse mouth after using the controller inhaler to prevent oral side effects. - Hypercholesterolemia: Blood work to re-evaluate lipid profile and ensure medication efficacy. Encourage continued dietary modifications and reassess medication adherence. - Obstructive Sleep Apnea: Discuss nasal spray use to reduce swelling and improve adherence to CPAP use. Consider consultation for possible surgical evaluation if symptoms persist. - Obesity: Emphasize lifestyle modifications including diet and exercise. Monitor and offer support for weight management. Orders: Orders Comprehensive [place]. Panel Fast Today E78.00 - Pure hypercholesterolemia, unspecified Medications: New budesonide-formoterol 160-4.5 mcg/actuation (Symbicort) 2 puffs inhalation BID 10.2 grams 3RF J45.20 - Mild intermittent asthma, uncomplicated fluticasone propionate 50 mcg/actuation (Flonase Allergy Relief) administer into each nostril 2 sprays intranasal DAILY 16 grams 2RF J34.2 - Deviated nasal septum
== END 2024-11-25 15:42 | disposition home or self-care (01) ==
PROVIDERS: Visit Provider Internal Medicine
DX: E78.00 Pure hypercholesterolemia, unspecified (principal); E66.9 Obesity, unspecified; Z68.31 Body mass index [BMI] 31.0-31.9, adult; J45.20 Mild intermittent asthma, uncomplicated

== ENCOUNTER → 2024-11-25 14:48 | Outpatient (BNVA) | payer OTHER, SELFPAY | PROVIDERS: Visit Provider Internal Medicine | DX: E66.9 Obesity, unspecified (principal); Z68.31 Body mass index [BMI] 31.0-31.9, adult; J45.20 Mild intermittent asthma, uncomplicated; E78.00 Pure hypercholesterolemia, unspecified; G47.33 Obstructive sleep apnea (adult) (pediatric) | CPT/HCPCS: 96127 ==

== ENCOUNTER 2025-08-27 15:00 | Outpatient (AMB) | payer OTHER, SELFPAY ==
--- NOTE | 2025-08-27 15:04 | MHC.PC.OV ---
Vital Signs 08/27/25 15:05 Height 5 ft 11 in Weight 221 lb BMI 30.8 BP 122/78 Blood Pressure Location Lt brachial Position Sitting Pulse 81 Pulse Source Pulse Oximeter Pulse Oximetry (%) 98 Oxygen Delivery Method Room Air Intake Visit Reasons: Annual Exam - see comments Allergies No Known Allergies Allergy (Verified 08/27/25 15:05) Medication List - Last Reconciled 08/27/25 by Cayla Lancaster MD albuterol sulfate 90 mcg/actuation 2 puffs inhalation Q4-6H PRN fluticasone propionate 50 mcg/actuation (Flonase Allergy Relief) 2 sprays intranasal DAILY Tobacco use date assessed: 11/25/24 Dental Screening Dental Screen Date: 08/27/25 Did you have a dental visit in the last 12 months?: No Did you have a dental problem in the last 6 months where you did not have access to dental care?: No Was dental information given to patient?: Patient has dentist [facility] Medical History (Updated 08/27/25 @ 15:39 by Cayla Lancaster MD) Fatigue Excessive daytime sleepiness Sleep difficulties Deviated nasal septum Asthma Surgical History No pertinent past surgical history Family History Mother Leukemia Father Hypertension Social History (Updated 08/27/25 @ 15:29 by Cayla Lancaster MD) Housing: Apartment Alcohol intake: current Alcohol intake frequency: a few times a week Alcohol type: wine Comment: 2 days weekend 5 drinks, once a month Patient Tobacco Use Status: Never used Tobacco Tobacco use type: Cigarette Years Smoked: weed stopped smoking and doing edibles e-Cigarette/Vaping Use: Never Used Second Hand Smoke Exposure: Yes Substance Use Type: Marijuana service: No Current occupational status: employed Current occupational exposures/hazards: No Cognitive needs: No Hearing needs: No Vision needs: No Questionnaire PHQ-9 Over the last 2 weeks, how often have you been bothered by any of the following problems? 1. Little interest or pleasure in doing things: several days 2. Feeling down, depressed, or hopeless: not at all 3. Trouble falling or staying asleep, or sleeping too much: several days 4. Feeling tired or having little energy: several days 5. Poor appetite or overeating: not at all 6. Feeling bad about yourself - or that you are a failure or have let yourself or your family down: not at all 7. Trouble concentrating on things, such as reading the newspaper or watching television: not at all 8. Moving or speaking so slowly that other people could have noticed. Or the opposite - being so fidgety or restless that you have been moving around a lot more than usual: not at all 9. Thoughts that you would be better off or of hurting yourself in some way: not at all Total score: 3 Depression Screening Interpretation: Positive Depression Screening Done: Yes Source: Developed by Drs. Orion Fontaine, Gia Morris, Rob Valdovinos and colleagues, with an educational jacob from [employer]. Thrive Questionnaire Date Thrive assessed: 08/25/25 I am a: Patient What is your living situation today?: I have a steady place to live Within the past 12 months, did the food you bought not last and you didn't have the money to get more?: Never true Within the past 12 months, did you worry whether your food would run out before you got money to buy more?: Sometimes True Do you have trouble paying for medicines?: No Do you have trouble getting transportation to medical appointments?: No Do you have trouble paying your heating and electricity bill?: No Do you have trouble taking care of your child, family member or friend?: I choose not to answer this question Do you have trouble with day-to-day activities such as bathing, preparing meals, shopping, managing finances, etc.?: No Are you currently unemployed and looking for a job?: No Are you interested in more education?: Yes Please select the resources that you would like help with: None Currently or been in a relationship where the following occur: No concerns reported THRIVE Score: 1 AUDIT C Alcohol Use Questionnaire (AUDIT-C) 1. How often do you have a drink containing alcohol?: Monthly or less 2. How many drinks containing alcohol do you have on a typical day when you are drinking?: 3 or 4 3. How often do you have six or more drinks on one occasion?: Less than monthly Total Score: 3 OLIVIER-7 AMB Questionnaire OLIVIER-7 Date OLIVIER - 7 assessed: 08/27/25 Feeling nervous, anxious, or on edge: 0 = Not at all Not being able to stop or control worryin = Not at all Worrying too much about different things: 0 = Not at all Trouble relaxin = Several days Being so restless that it is hard to sit still: 0 = Not at all Becoming easily annoyed or irritable: 0 = Not at all Feeling afraid as if something awful might happen: 0 = Not at all Total OLIVIER-7 score (0-4 normal; 5-9 mild; 10-14 moderate; 15-21 severe): 1 Source: Developed by Drs. Orion Fontaine, Gia Morris, Rob Valdovinos and colleagues, with an educational jacob from [employer]. Review of Systems Const Denies poor appetite and Denies weakness Eyes Denies no additional complaints ENT Reports Normal hearing present, Denies dizziness, Denies nasal congestion, Denies tinnitus and Denies sore throat Card Denies chest pain, Denies syncope, Denies rapid heart rate and Denies dyspnea Resp Denies cough and Denies dyspnea GI Denies change in stool character, Reports constipation, Denies diarrhea, Denies nausea and Denies vomiting Denies dysuria and Denies urinary frequency Neuro Reports Normal hearing present, Denies confusion, Denies dizziness, Denies syncope and Denies weakness Psych Denies confusion Physical exam (Primary Care) Vital Signs: Last Vital Signs Pulse 81 08/27/25 15:05 BP 122/78 08/27/25 15:05 Pulse Ox 98 08/27/25 15:05 Oxygen Delivery Method Room Air 08/27/25 15:05 BMI result Body Mass Index 30.8 Tobacco/Smoking Status: Tobacco use Status Tobacco use date assessed 11/25/24 08/27/25 15:10 Patient Tobacco Use Status Never used Tobacco 08/27/25 15:29 Tobacco use type Cigarette 08/27/25 15:29 e-Cigarette/Vaping Use Never Used 08/27/25 15:29 PHQ-9: PHQ-9 Score PHQ-9: Total score 3 08/27/25 15:22 Depression Screening Interpretation: Positive Thrive Assessment: Date of Thrive Assessment Date Thrive assessed 08/25/25 08/27/25 15:10 Currently or been in a relationship where the following occur: No concerns reported Const General: No confusion Orientation/consciousness: No confusion HENMT Other: impacted cerumen bilateral Head: Yes normocephalic Ears: external ears normal Face and sinus: Yes normal facial exam Mouth: moist mucous membranes Throat: Yes tonsils normal Eyes Conjunctivae: conjunctivae normal Pupils: Equal, round and reactive pupils present and Pupil accommodation reflex normal Direct Ophthalmoscopy: normal light reflex Neck Neck: No lymphadenopathy Thyroid: Thyroid normal Chest Chest palpation & inspection: normal inspection of the chest Resp Effort & Inspection: normal respiratory effort and no audible wheezes Auscultation: clear to auscultation bilaterally, no crackles, no wheezes and lung sounds not diminished Cardio Rate: regular rate Rhythm: regular rhythm Peripheral pulses: radial pulses present and dorsalis pedis present GI Palpation (GI): no masses Auscultation: normal bowel sounds and normoactive bowel sounds Rectal Exam - Male: Yes deferred Skin General skin exam: no rashes or lesions noted Rashes: no rashes Neuro General: No confusion Cranial nerves: Yes Equal, round and reactive pupils present and Yes Normal hearing present Cognition (Neuro): normal cognition Gait exam (Neuro): Normal gait present Motor exam (neuro): 5/5 motor strength present throughout Deep tendon reflexes (DTR's): Right brachioradialis reflex intensity grade: 2+, Left brachioradialis reflex intensity grade: 2+, Right patellar reflex intensity grade: 2+ and Left patellar reflex intensity grade: 2+ Extrem General: No edema Office Procedures Cerumen Removal From which ear canal was the cerumen removed: right Removal: otoscope w/curette and cerumen loop/spoon Notes: patient tolerated procedure well, no complications and ear canal clear [id number] Wax Removal by Spoon/Curette Flu Questionnaire Does the patient have a severe egg allergy?: No Does the patient have severe life threatening allergies?: No Does the patient have a fever or illness today?: No Has the patient ever had Guillain-South Heart Syndrome?: No Has the patient ever had any past reaction to a flu shot?: No Immunizations Fluarix 7938-2114 (PF) 45 mcg (15 mcg x 3)/0.5 mL IM syringe Performing Provider: Cayla Lancaster MD Performing Location[facility] Administered by: Amanda Duckworth CMA on 08/27/25 15:45 Dose Route Admin Location Dispensed Lot Number Expiration Date NDC Renewals Specialist 0.5 mL IM Left Deltoid 0.5 mL [id number] 04/20/26 13560-746-92 [employer] VIS Given Date VIS Provided VIS Publication Date 08/27/25 Single Vaccine 24 Eligibility Eligibility Date Funding Source Not [facility] Eligible 08/27/25 Private Coding Level of Care Code Est Pt Prev Care 18-39y([id number]) Diagnoses Annual physical exam Z00.00 Mild intermittent asthma without complication J45.20 Asthma severity: mild Asthma persistence: intermittent Asthma complication type: uncomplicated Obesity (BMI 30-39.9) E66.9 Hypercholesteremia E78.00 Impacted cerumen of both ears H61.23 CPT Codes Office Procedure - CPT: 13870-Btk Wax Removal by Spoon/Curette ([id number]) Assessment & Plan Assessment & Plan (1) Annual physical exam: Code(s): Z00.00 - Encounter for general adult medical examination without abnormal findings Category: Medical Plan: Patient is advised to eat healthy, keep well hydrated, keep active and have adequate sleep. (2) Asthma: Code(s): J45.909 - Unspecified asthma, uncomplicated Category: Medical Qualifiers: Asthma severity: mild Asthma persistence: intermittent Asthma complication type: uncomplicated Qualified Code(s): J45.20 - Mild intermittent asthma, uncomplicated Plan: Patient on albuterol inhaler as well as Symbicort (3) Obesity (BMI 30-39.9): Code(s): E66.9 - Obesity, unspecified Category: Social Hx Plan: Diet and exercise (4) Hypercholesteremia: Code(s): E78.00 - Pure hypercholesterolemia, unspecified Category: Medical Plan: Avoid fried foods, chicken skin, eggs, butter margarine, pastries and meat. Be it pork or beef they have a lot of cholesterol LDL goal of less than 130 and triglyceride of less than 150. Blood work requested (5) Impacted cerumen of both ears: Code(s): H61.23 - Impacted cerumen, bilateral Category: Medical Plan: schedule for ear irrigation. Trial of extraction done but not totally successful Plan History of Present Illness The patient is a 35-year-old obese male presenting for a physical exam. He has a history of asthma and hypercholesterolemia. His last visit was in November, and he has since lost approximately 5 pounds. His last blood work in 2022 showed normal blood count, electrolytes, renal function, blood sugar, and liver function, with elevated cholesterol and a normal thyroid. Regarding his asthma, he uses an albuterol inhaler, sometimes as frequently as every night. He reports experiencing shortness of breath while running and walking for exercise, even after doing so for a few months. He has never had a lung function test. The patient also reports worsening snoring, which causes xerostomia upon waking and is loud enough to wake him from sleep. He recalls one episode of waking up short of breath at night. He was previously diagnosed with mild sleep apnea and was prescribed a CPAP machine, but he reports that it is still an issue. He has not had any new diagnoses or surgeries since his last visit. Family history is significant for a mother with leukemia, but there is no other family history of cancer or heart attacks. He has stopped smoking marijuana but uses THC gummies. He has significantly reduced his alcohol intake to about once per month. Health Maintenance The patient will receive an influenza vaccine, which is important given his history of asthma. During the examination, a weak spot in the abdomen was identified, and the patient was counseled to be careful with heavy lifting to avoid developing a hernia. The importance of a healthy diet, hydration, and continued exercise was reinforced. Social History - Alcohol Use: Reports reduced consumption to approximately once per month. - Substance Use: He has stopped smoking marijuana but uses THC gummies. - Exercise: The patient has been running and walking for a few months, covering distances of about four miles. - Diet and Weight Management: He is trying to eat better and has lost around 4-5 pounds. Review of Systems - General: Denies fever. - HEENT: Reports worsening snoring, dry mouth upon waking, and excessive ear wax. - Denies dizziness and difficulty swallowing. - Cardiovascular: Denies chest pain or syncope. - Respiratory: Reports dyspnea on exertion and one episode of waking up short of breath at night. - Gastrointestinal: Denies nausea, vomiting, heartburn, constipation, or diarrhea. - Genitourinary: Denies urinary issues, reports nocturia 1-2 times per night. Physical Exam General: Cooperative, healthy appearing, comfortable, no acute distress and well developed Orientation: Patient oriented x3 Limitations: No limitations Head: Normal to inspection Ears: Hearing grossly normal bilaterally, some ear wax noted Nose: Normal external nose present Face and sinus: Normal facial exam Eyes: Appearance normal, both eyes and all related structures Neck: Normal visual inspection and Yes full ROM Respiratory: Normal respiratory effort and able to speak in complete sentences. Clear to auscultation bilaterally Cardiovascular: Regular rate and rhythm. Normal S1 and S2 GI: Normal to inspection. Soft to palpation and nontender Skin: No rashes or lesions noted Neuro: Patient oriented x3 Extremities: Normal to inspection Results - Prior labs (2022): CBC, electrolytes, renal function (creatinine 1.10), glucose, LFTs, and TSH were normal. - Cholesterol was elevated. Plan Patient was informed and verbally consented to the use of an ambient scribe for clinic note documentation during this visit. 1. Asthma The patient reports using his inhaler almost every night and experiencing shortness of breath with exertion, suggesting his asthma may be sub-optimally controlled. To further evaluate, a pulmonary function test (PFT) and a chest X-ray have been ordered. The patient has been advised to use his inhaler before exercise and to withhold using it for 8 hours prior to the PFT. 2. Hypercholesterolemia The patient has a history of elevated cholesterol. A request for blood work, including a lipid panel, has been placed with target goals of an LDL less than 130 and triglycerides less than 150. The patient is encouraged to continue with diet and exercise modifications. 3. Snoring And Mild Sleep Apnea The patient reports worsening snoring and a history of mild sleep apnea. A referral to an Ear, Nose, and Throat (ENT) specialist will be made for further evaluation. 4. 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 An attempt to manually remove the wax was made, but due to the large amount, it was recommended to schedule a follow-up appointment for ear lavage. The patient was advised not to use Q-tips. Discussion Notes I discussed the plan to investigate the patient's shortness of breath with a lung function test and a chest X-ray. I explained that he should not use his inhaler for eight hours before the lung test and that the hospital would contact him for scheduling this test. We reviewed the next steps for his worsening snoring, which includes a referral to an ENT specialist. I explained that the significant ear wax is a genetic trait and that flushing it out at a future visit would be the most effective way to remove it. I informed him about the weak spot found in his abdomen during the hernia check and advised him to be careful with heavy lifting to prevent a hernia. We discussed the importance of the flu vaccine, especially due to his asthma, and he agreed to receive it. I confirmed that requisitions for his blood work and chest X-ray are ready, and he can get them done at his convenience. Patient Instructions - Go to the lab for the ordered blood work and chest X-ray. - The hospital will call you to schedule your lung function test. - Do not use your inhaler for 8 hours before the lung function test. - Try using your inhaler before you run to help with your breathing. - An Ear, Nose, and Throat (ENT) specialist will call you to schedule an appointment for your snoring. - Schedule a follow-up appointment to have the wax flushed from your ears. - Do not use Q-tips to clean your ears. - Be careful and avoid lifting heavy objects to prevent getting a hernia. - You will be given a flu shot today. - Continue to eat a healthy diet, drink plenty of water, and exercise regularly. Orders: Orders XR chest 2V Today J45.20 - Mild intermittent asthma, uncomplicated PFT pulmonary function test Today J45.20 - Mild intermittent asthma, uncomplicated Influenza [id number] Immunization Today Z23 - Encounter for immunization Referrals Ear/Nose/Throat Referral R06.83 - Snoring
[2025-08-27 15:05] VITALS: BP 122/78; PULSE 81; O2SAT 98; BMI 30.8
--- OUTSIDE RECORDS SUMMARY | 2025-08-27 18:06 | XMS_ITS | Data Portability ---
Author Organization [place] - [facility], Allergy Address [address] [address] Assessment Encounter Date Assessment Date Assessment LastModified by Organization Details LastModified Time 04/23/2024 04/23/2024 34-year-old male with history of septoplasty and adenoidectomy presents for follow-up of sinusitis. Symptoms improved with doxycycline. Exam today demonstrates bloody crusting, but no obvious purulence. Given improvement in symptoms, we discussed an extended course of antibiotics. As patient is going to [place], I recommended we switch to Augmentin to [...] He will follow-up to review the results. [email or web address] Not available 04/23/2024 15:48:32 Plan of Treatment [...] recorded. Imaging CT, sinuses, w/o contrast 2023 [place] [facility], [address] [place] [address], [address], 11:53:51 Medication Orders Augmentin 875 mg-125 mg tablet 2023 [facility] #[id number], [address] [place], [address], 15:41:16 Patient TargetsNo targets recorded. Patient InstructionsNo instructions recorded. Reason for Referral None Reported. Results Created Date Observation Date Name Description Value Unit Range Abnormal Flag Note LastModifiedBy Organization Detail LastModifiedTime 04/23/20 CT, sinus es, w/o contr ast No observ ation record ed. [email or web address] [address], [address], 04/25/2024 11:53:52 06/03/20 24 06/02/2024 CT, sinus es, w/o contr ast No observ ation record ed. [email or web address] [facility] [address], [address], 06/04/2024 14:29:43 Result Notes None recorded. Problems Name Problem SNOMED Code Status Onset Date Resolution Date Notes Provider Name and Address Organization Details Recorded Time Nasal congestion 34633560 Active 2023 MADISON SMITH PA-C [address] [address], [place], [address], [facility] - [facility] 4 15:40:34 Chronic sinusitis 23377043 Active 2023 MADISON SMITH PA-C [address] [facility], [place], [address], [facility] - [facility] [place] 4 15:40:39 Chronic rhinitis 17441840 Active 2023 MADISON SMITH PA-C [address] [facility],[address] [address], [place], [address], [facility] 4 15:44:46 Non-allergi c rhinitis 506630532441 Active 2023 MADISON SMITH PA-C [address] [facility],[address] [address], [place], [address], [facility] 4 15:44:53 Seasonal allergic rhinitis 978755529 Active 2023 MADISON SMITH PA-C [address] [facility],[address] [address], [place], [address], [facility] [place] 4 15:44:53 Allergic rhinitis 36786128 Active 2023 MADISON SMITH PA-C [address] [facility],[address] [address], [place], [address], [facility] 4 15:44:53 Acute sinusitis 76682328 Active 2023 Mika Tracey [facility] 11:51:57 Problem Notes None recorded. Medical Equipment None Reported. Allergies No known drug allergies Medications Name Sig Start Date Stop Date Status Note LastModified by Organization Details LastModified Time Augmentin 875 mg-125 mg tablet Take 1 tablet every 12 hours by oral route for 10 days. 2023 active Not Available Not Available Not Avai lable cetirizine 10 mg tablet active Medication ID: [id number] Bra nd Name: cetirizine Send Method: E-Prescrib ed Subs Allowed: subs [place] Special Instructio n: TAKE 1 TABLET BY MOUTH EVERY DAY Medica tionGeneri cName: cetirizine Not Available Not Available Not Available atorvastat in 10 mg tablet active Medication ID: [id number] Bra nd Name: atorvastat in Send Method: E-Prescrib ed Subs Allowed: subs [place] Special Instructio n: TAKE 1 TABLET BY MOUTH EVERYDAY AT BEDTIME Nj dicationGe nericName: atorvastat in Not Available Not Available Not Available doxycyclin e monohydrat e 100 mg capsule Take 1 capsule by mouth twice a day 2023 active Medication ID: [id number] Dur ation Value: 10 Brand Name: doxycyclin e monohydrat e Send Method: E-Prescrib ed Subs Allowed: subs [place] Medicat ionGeneric Name: doxycyclin e monohydrat e Not Available Not Available Not Available fluticason e propionate 50 mcg/actuat ion nasal spray,susp ension active Medication ID: [id number] Bra nd Name: fluticason e propionate Send Method: E-Prescrib ed Subs Allowed: subs [place] Special Instructio n: SPRAY 2 SPRAYS INTRANASAL LY DAILY Medi cationGene ricName: fluticason e propionate Not Available Not Available Not Available Vitals Date Recorded Body height Body mass index (BMI) Body weight Provider Name and Address Organization Details Last Updated DateTime 04/23/2024 180.34 cm 31.5 kg/m2 966094.88 g Amanda Terrell [place] - [facility] 04/23/2024 15:30:02 Social History None recorded. Functional Status None recorded. Mental Status None recorded. Family History Nothing Reported. Medical History No medical history recorded. Past Encounters Encounter ID Performer Location Encounter Start Date Encounter Closed Date Diagnosis/Indication Diagnosis SNOMED-CT Code Diagnosis ICD10 Code Diagnosis IMO Codes Diagnosis Note [id number] MADISON SMITH PA-C [facility] [address] [address] 04/23/2024 15:05:31 04/23/2024 15:36:39 Nasal congestion 12765627 R09.81 Chronic sinusitis 113637 00 J32.9 Health Concerns Section Related Observation LastModified by Organization Detai ls LastModified Time None Recorded Concern Status LastModified by Organization Details LastModified Time None Recorded Advance Directives Directive None Recorded Payers Insurance Date Sequence Insurance Name Policy Number Policy Madrigal Covered Member ID Madrigal Member ID Guarantor Name 10/06/[address] [place] [address] [id number] Dewey Holcomb [id number] Dewey Holcomb Notes Date Note Type Note Provider Name and Address Organization Details Recorded Time 04/23/2024 text/html ROS as noted in the HPI 34-year-old male presents for follow-up of sinusitis. [...] about 15 years ago while living in [place]. CORONA RAMIREZ MD [address] [place] [address], [place], [address], [facility] - [facility] 04/24/2024 22:26:06
== END 2025-08-27 15:52 | disposition home or self-care (01) ==
LOC: HO.HMCH 15:01
PROVIDERS: Visit Provider Internal Medicine
DX: Z00.00 Encounter for general adult medical examination without abnormal findings (principal); J45.20 Mild intermittent asthma, uncomplicated; E66.9 Obesity, unspecified; Z68.30 Body mass index [BMI] 30.0-30.9, adult; E78.00 Pure hypercholesterolemia, unspecified; H61.23 Impacted cerumen, bilateral; Z23 Encounter for immunization

== ENCOUNTER → 2025-08-27 15:00 | Outpatient (BNVA) | payer OTHER, SELFPAY | PROVIDERS: Visit Provider Internal Medicine | DX: Z00.00 Encounter for general adult medical examination without abnormal findings (principal); J45.20 Mild intermittent asthma, uncomplicated; E78.00 Pure hypercholesterolemia, unspecified; E66.9 Obesity, unspecified; H61.23 Impacted cerumen, bilateral; Z23 Encounter for immunization; Z13.31 Encounter for screening for depression; Z13.39 Encounter for screening examination for other mental health and behavioral disorders | CPT/HCPCS: 69210; 90471; 90656; 96127 ==

== ENCOUNTER 2025-09-02 09:01 | Outpatient (AMB) | payer OTHER, SELFPAY ==
[2025-09-02 09:06] VITALS: BP 120/80; PULSE 84; TEMP 36.3; O2SAT 97; BMI 31.2
--- NOTE | 2025-09-02 09:06 | MHC.PC.OV ---
Vital Signs 09/02/25 09:06 Height 5 ft 11 in Weight 224 lb BMI 31.2 BP 120/80 Blood Pressure Location Lt brachial Position Sitting Pulse 84 Pulse Source Pulse Oximeter Temp 97.3 F Temp Source Temporal Artery Scan Pulse Oximetry (%) 97 Oxygen Delivery Method Room Air Intake Visit Reasons: Ear Irrigation Allergies No Known Allergies Allergy (Verified 09/02/25 09:07) Tobacco use date assessed: 09/02/25 Dental Screening Dental Screen Date: 09/02/25 Did you have a dental visit in the last 12 months?: No Did you have a dental problem in the last 6 months where you did not have access to dental care?: No Was dental information given to patient?: Patient has dentist COUNTS INCLUDE 234 BEDS AT THE [facility] Medical History Fatigue Excessive daytime sleepiness Sleep difficulties Deviated nasal septum Asthma Surgical History No pertinent past surgical history Family History Mother Leukemia Father Hypertension Social History Housing: Apartment Alcohol intake: current Alcohol intake frequency: a few times a week Alcohol type: wine Comment: 2 days weekend 5 drinks, once a month Patient Tobacco Use Status: Never used Tobacco Tobacco use type: Cigarette Years Smoked: weed stopped smoking and doing edibles e-Cigarette/Vaping Use: Never Used Second Hand Smoke Exposure: Yes Substance Use Type: Marijuana service: No Current occupational status: employed Current occupational exposures/hazards: No Cognitive needs: No Hearing needs: No Vision needs: No Questionnaire PHQ-9 Over the last 2 weeks, how often have you been bothered by any of the following problems? 1. Little interest or pleasure in doing things: several days 2. Feeling down, depressed, or hopeless: not at all 3. Trouble falling or staying asleep, or sleeping too much: several days 4. Feeling tired or having little energy: several days 5. Poor appetite or overeating: not at all 6. Feeling bad about yourself - or that you are a failure or have let yourself or your family down: not at all 7. Trouble concentrating on things, such as reading the newspaper or watching television: not at all 8. Moving or speaking so slowly that other people could have noticed. Or the opposite - being so fidgety or restless that you have been moving around a lot more than usual: not at all 9. Thoughts that you would be better off or of hurting yourself in some way: not at all Total score: 3 Depression Screening Interpretation: Positive Depression Screening Done: Yes Source: Developed by Drs. Orion Fontaine, Gia Morris, Rob Valdovinos and colleagues, with an educational jacob from [employer]. Thrive Questionnaire Date Thrive assessed: 08/25/25 I am a: Patient What is your living situation today?: I have a steady place to live Within the past 12 months, did the food you bought not last and you didn't have the money to get more?: Never true Within the past 12 months, did you worry whether your food would run out before you got money to buy more?: Sometimes True Do you have trouble paying for medicines?: No Do you have trouble getting transportation to medical appointments?: No Do you have trouble paying your heating and electricity bill?: No Do you have trouble taking care of your child, family member or friend?: I choose not to answer this question Do you have trouble with day-to-day activities such as bathing, preparing meals, shopping, managing finances, etc.?: No Are you currently unemployed and looking for a job?: No Are you interested in more education?: Yes Please select the resources that you would like help with: None Currently or been in a relationship where the following occur: No concerns reported THRIVE Score: 1 AUDIT C Alcohol Use Questionnaire (AUDIT-C) 1. How often do you have a drink containing alcohol?: Monthly or less 2. How many drinks containing alcohol do you have on a typical day when you are drinking?: 3 or 4 3. How often do you have six or more drinks on one occasion?: Less than monthly Total Score: 3 OLIVIER-7 AMB Questionnaire OLIVIER-7 Date OLIVIER - 7 assessed: 08/27/25 Feeling nervous, anxious, or on edge: 0 = Not at all Not being able to stop or control worryin = Not at all Worrying too much about different things: 0 = Not at all Trouble relaxin = Several days Being so restless that it is hard to sit still: 0 = Not at all Becoming easily annoyed or irritable: 0 = Not at all Feeling afraid as if something awful might happen: 0 = Not at all Total OLIVIER-7 score (0-4 normal; 5-9 mild; 10-14 moderate; 15-21 severe): 1 Source: Developed by Drs. Orion Fontaine, Gia Morris, Rob Valdovinos and colleagues, with an educational jacob from [employer]. Physical exam (Primary Care) Vital Signs: Last Vital Signs Temp 97.3 F 09/02/25 09:06 Pulse 84 09/02/25 09:06 BP 120/80 09/02/25 09:06 Pulse Ox 97 09/02/25 09:06 Oxygen Delivery Method Room Air 09/02/25 09:06 BMI result Body Mass Index 31.2 Tobacco/Smoking Status: Tobacco use Status Tobacco use date assessed 09/02/25 09/02/25 09:10 Patient Tobacco Use Status Never used Tobacco 09/02/25 09:10 Tobacco use type Cigarette 09/02/25 09:10 e-Cigarette/Vaping Use Never Used 09/02/25 09:10 PHQ-9: PHQ-9 Score PHQ-9: Total score 3 09/02/25 09:41 Depression Screening Interpretation: Positive Thrive Assessment: Date of Thrive Assessment Date Thrive assessed 08/25/25 09/02/25 09:10 Currently or been in a relationship where the following occur: No concerns reported Office Procedures Cerumen Removal From which ear canal was the cerumen removed: bilateral Removal: irrigation, otoscope w/curette, cerumen loop/spoon and other Notes: patient tolerated procedure well, no complications and ear canal clear 13425-Yzh Irrigation/Lavage Coding Level of Care Code Est Pt Level 3 (92574) Diagnoses Impacted cerumen of both ears H61.23 CPT Codes Office Procedure - CPT: 26028-Hxg Irrigation/Lavage ([id number]) Assessment & Plan Assessment & Plan (1) Impacted cerumen of both ears: Code(s): H61.23 - Impacted cerumen, bilateral Category: Medical Plan: irrigation done and TM intact used scoop also Plan History of Present Illness The patient is a 35-year-old male with a history of obesity, asthma, and hypercholesterolemia who presents for bilateral ear irrigation for impacted cerumen. For his asthma, the patient uses Symbicort, currently taking at least one puff at night due to the weather. He was previously unaware of the instruction to rinse his mouth after using the inhaler. The patient reports a family history of impacted cerumen, noting that his mother and grandmother have the same issue. Health Maintenance - Laboratory testing for glucose and cholesterol was discussed. - The patient was instructed to fast for 8 hours with only sips of water permitted before the blood draw. Social History Review of Systems - Ears: Reports feeling of blockage in the ears. - Respiratory: Reports using his Symbicort inhaler once at night. Physical Exam - Constitutional: A 35-year-old obese male. - Ears: Otoscopic examination revealed impacted cerumen bilaterally, with one ear noted to be full and the wax described as hard. - Post-procedure, the ear canals were open. - Respiratory: Lungs were auscultated. Results Plan Patient was informed and verbally consented to the use of an ambient scribe for clinic note documentation during this visit. 1. Impacted Cerumen, Bilateral The patient presented with bilateral impacted cerumen. The cerumen was noted to be hard during examination. Bilateral ear irrigation was performed in the office, and the cerumen was successfully removed. Post-procedure examination confirmed the ear canals were open. 2. Asthma, Unspecified The patient's asthma is managed with Symbicort, which he uses once daily. Patient education was provided on the difference between a rescue inhaler, which provides immediate but short-term relief for 4-6 hours, and a controller inhaler like Symbicort, which is long-acting over 12 hours due to its combination of a long-acting bronchodilator and a steroid. The patient was instructed to use Symbicort two puffs twice a day for better control and to rinse his mouth and spit after each use to prevent oral fungal infections caused by the steroid component. 3. Hypercholesterolemia, Unspecified To monitor the patient's history of hypercholesterolemia and check his glucose levels, laboratory tests were ordered. The patient was instructed to fast for 8 hours prior to the blood draw, with only sips of water permitted. A follow-up visit will be scheduled to discuss the results. Discussion Notes I performed bilateral ear irrigation to remove impacted cerumen, explaining to the patient that the wax was hard but that the procedure was successful in clearing the canals. I counseled the patient on his asthma management, differentiating between his Symbicort controller inhaler and a short-acting rescue inhaler. I emphasized the importance of rinsing his mouth after using Symbicort to prevent the risk of oral fungal infections, recommending he use it twice daily for better control. I also ordered lab work for sugar and cholesterol and instructed him to fast for 8 hours prior to the test, with a plan to discuss the results at a follow-up appointment. Patient Instructions - For your asthma, use your Symbicort inhaler twice a day, every day, to better control your symptoms. - After using Symbicort, you must rinse your mouth with water and spit it out to prevent an infection in your mouth. - You will need to go for blood tests to check your sugar and cholesterol. - Do not eat any food for 8 hours before your blood test. - You can drink small sips of water. - We will discuss your lab results when they are available.
--- OUTSIDE RECORDS SUMMARY | 2025-09-02 09:38 | XMS_ITS | Data Portability ---
Author Organization [place] - [facility], Allergy Address [address] [address] Assessment Encounter Date Assessment Date Assessment LastModified by Organization Details LastModified Time 04/23/2024 04/23/2024 34-year-old male with history of septoplasty and adenoidectomy presents for follow-up of sinusitis. Symptoms improved with doxycycline. Exam today demonstrates bloody crusting, but no obvious purulence. Given improvement in symptoms, we discussed an extended course of antibiotics. As patient is going to [place], I recommended we switch to Augmentin to [...] He will follow-up to review the results. [email or web address] Not available 04/23/2024 15:48:32 Plan of Treatment Reminders Order Date Submit Date Provider Last Modified By Organization Details Last Modified Time Details Appointments Establish ed 15 2024 03:45P M MARIS RIVERA PA-C Not available Not available Not available Lab None recorded. Referral None recorded. Procedures allergy testing, skin prick (PROC) 2023 024 [email or web address] Not available 04/23/2024 16:00:50 intraderm al allergy skin testing (PROC) 2023 024 [email or web address] Not available 04/23/2024 16:00:50 pulmonary function test procedure (PROC) 2023 024 [email or web address] Not available 04/23/2024 16:00:50 pulse oximetry (PROC) 2023 [email or web address] Not available 04/23/2024 16:00:50 Surgeries None recorded. Imaging CT, sinuses, w/o contrast 2023 [facility], [address] [place] [address], [id number], 04/25/2024 11:53:51 Medication Orders Augmentin 875 mg-125 mg tablet 2023 [id number], [address] [facility], [place], [address], 04/23/2024 15:41:16 Patient TargetsNo targets recorded. Patient InstructionsNo instructions recorded. Reason for Referral None Reported. Results Created Date Observation Date Name Description Value Unit Range Abnormal Flag Note LastModifiedBy Organization Detail LastModifiedTime 04/23/20 CT, sinus es, w/o contr ast No observ ation record ed. [email or web address] [facility] [address], [phone], 04/25/2024 11:53:52 06/03/20 24 06/02/2024 CT, sinus es, w/o contr ast No observ ation record ed. [email or web address] [facility] [address] [address], [place], [address], 06/04/2024 14:29:43 Result Notes None recorded. Problems Name Problem SNOMED Code Status Onset Date Resolution Date Notes Provider Name and Address Organization Details Recorded Time Nasal congestion 05658316 Active 2023 MADISON SMITH PA-C [address] [place] [address], [place], [phone], [facility] - [facility] 15:40:34 Chronic sinusitis 75955124 Active 2023 MADISON SMITH PA-C [address] [place] [address], [place], [address], [facility] [place] [facility] 15:40:39 Chronic rhinitis 80611986 Active 2023 MADISON SMITH PA-C [address] [facility],[place] [address], [facility] [place], [address], [facility] - [facility] [place] [facility] 15:44:46 Non-allergi c rhinitis 260151221361 Active 2023 MADISON SMITH PA-C [address] [place] [address],[place] [address], [facility] [place], [address], [facility] - [facility] [place] [facility] 15:44:53 Seasonal allergic rhinitis 775231265 Active 2023 MADISON SMITH PA-C [address] [place] [address],[place] [address], [facility] [place], [address], [facility] - [facility] [place] [facility] 15:44:53 Allergic rhinitis 43686263 Active 2023 MADISON SMITH PA-C [address] [facility],[place] [address], [facility] [place], [address], [facility] - [facility] [place] [facility] 15:44:53 Acute sinusitis 22624324 [place] 2023 [place] - [facility] [place] [facility] 11:51:57 Problem Notes None recorded. Medical Equipment None Reported. Allergies No known drug allergies Medications Name Sig Start Date Stop Date Status Note LastModified by Organization Details LastModified Time Augmentin 875 mg-125 mg tablet Take 1 tablet every 12 hours by oral route for 10 days. 2023 active Not Available Not Available Not Avai lable cetirizine 10 mg tablet active Medication ID: [id number] Bra nd Name: cetirizine Send Method: E-Prescrib ed Subs Allowed: subs OK Special Instructio n: TAKE 1 TABLET BY MOUTH EVERY DAY Medica tionGeneri cName: cetirizine Not Available Not Available Not Available atorvastat in 10 mg tablet active Medication ID: [id number] Bra nd Name: atorvastat in Send Method: E-Prescrib ed Subs Allowed: subs OK Special Instructio n: TAKE 1 TABLET BY MOUTH EVERYDAY AT BEDTIME Me dicationGe nericName: atorvastat in Not Available Not Available Not Available doxycyclin e monohydrat e 100 mg capsule Take 1 capsule by mouth twice a day 2023 active Medication ID: [id number] Dur ation Value: 10 Brand Name: doxycyclin e monohydrat e Send Method: E-Prescrib ed Subs Allowed: subs OK Medicat ionGeneric Name: doxycyclin e monohydrat e Not Available Not Available Not Available fluticason e propionate 50 mcg/actuat ion nasal spray,susp ension active Medication ID: [id number] Bra nd Name: fluticason e propionate Send Method: E-Prescrib ed Subs Allowed: subs OK Special Instructio n: SPRAY 2 SPRAYS INTRANASAL LY DAILY Medi cationGene ricName: fluticason e propionate Not Available Not Available Not Available Vitals Date Recorded Body height Body mass index (BMI) Body weight Provider Name and Address Organization Details Last Updated DateTime 04/23/2024 180.34 cm 31.5 kg/m2 311456.88 g Amanda Terrell [place] - [facility] 04/23/2024 15:30:02 Social History None recorded. Functional Status None recorded. Mental Status None recorded. Family History Nothing Reported. Medical History No medical history recorded. Past Encounters Encounter ID Performer Location Encounter Start Date Encounter Closed Date Diagnosis/Indication Diagnosis SNOMED-CT Code Diagnosis ICD10 Code Diagnosis IMO Codes Diagnosis Note [id number] MADISON SMITH PA-C [facility] [address] [address] 04/23/2024 15:05:31 04/23/2024 15:36:39 Nasal congestion 00450242 R09.81 Chronic sinusitis 854943 00 J32.9 Health Concerns Section Related Observation LastModified by Organization Detai ls LastModified Time None Recorded Concern Status LastModified by Organization Details LastModified Time None Recorded Advance Directives Directive None Recorded Payers Insurance Date Sequence Insurance Name Policy Number Policy Madrigal Covered Member ID Madrigal Member ID Guarantor Name 09/01/[address] [place] [address] [id number] Dewey Holcomb [id number] Dewey Holcomb Notes Date Note Type Note [...] about 15 years ago while living in [place]. CORONA RAMIREZ MD [address] [place] [address], [phone], [facility] - [facility] 04/24/2024 22:26:06
== END 2025-09-02 10:49 | disposition home or self-care (01) ==
LOC: HO.HMCH 09:02
PROVIDERS: PCP Internal Medicine; Visit Provider Internal Medicine
DX: H61.23 Impacted cerumen, bilateral (principal)

== ENCOUNTER → 2025-09-02 09:01 | Outpatient (BNVA) | payer OTHER, SELFPAY | PROVIDERS: PCP Internal Medicine; Visit Provider Internal Medicine | DX: H61.23 Impacted cerumen, bilateral (principal); E66.9 Obesity, unspecified; J45.909 Unspecified asthma, uncomplicated; E78.00 Pure hypercholesterolemia, unspecified; Z13.31 Encounter for screening for depression | CPT/HCPCS: 69210; 96127 ==

== ENCOUNTER 2025-09-07 08:44 | Outpatient (REF) | payer OTHER, SELFPAY ==
[2025-09-07 08:55] LABS: MANUAL DIFF FLAG NO
[2025-09-07 09:12] LABS: Hematocrit 51.4 % (42.0-52.0); Hemoglobin 17.0 g/dl (14.0-18.0); Imm Gran Abs Auto 0.02 X10*3/uL (0.00-0.03); Imm Gran Pct Auto 0.3 % (0.0-0.4); Lymphocytes Absolute Auto 2.3 X10*3/uL (1.2-4.9); Mean Corpuscular HGB Conc 33.1 g/dl (31.0-36.0); Mean Corpuscular Hemoglobin 28.8 pg (27.0-33.0); Mean Corpuscular Volume 87.0 fL (80.0-98.0); NRBC Abs Auto 0.000 X10*3/uL (0.0-0.012); NRBC Pct Auto 0.0 /100WBC (0.0-0.2); Platelet Count 275 X10*3/uL (160-400); Red Blood Count 5.91 X10*6/uL (4.60-5.80); White Blood Count 7.8 X10*3/uL (4.8-10.8)
[2025-09-07 09:48] LABS: Alanine Aminotransferase 22 U/L (0-40); Albumin Level 4.7 g/dL (3.5-5.0); Alkaline Phosphatase 127 U/L (39-117); Anion Gap 14 (12-20); Aspartate Amino Transferase 24 U/L (5-37); Blood Urea Nitrogen 15 mg/dL (9-16); Calcium 9.5 mg/dL (8.4-10.2); Carbon Dioxide 24 mmol/L (22-29); Chloride 105 mmol/L (96-108); Cholesterol 236 mg/dL (<200); Estimated Glomerular Filt Rate > 60; HDL Cholesterol 34 mg/dL (>40); Potassium 4.1 mmol/L (3.3-5.1); Sodium 139 mmol/L (135-145); Total Protein 7.9 g/dL (6.5-8.0); Triglycerides 409 mg/dL (<150)
[2025-09-07 10:06] LABS: Free T4 (Free Thyroxine) 1.06 ng/dL (0.71-1.85); Thyroid Stimulating Hormone 2.08 uIU/mL (0.32-4.0)
[2025-09-07 10:08] LABS: Folate 5.7 ng/mL (> or = 4.0); Vitamin B12 335 pg/mL (200-900)
== END 2025-09-07 08:45 | disposition home or self-care (01) ==
LOC: HO.LAB 08:44
PROVIDERS: PCP Internal Medicine; Visit Provider Internal Medicine
DX: E78.00 Pure hypercholesterolemia, unspecified (principal)
CPT/HCPCS: 36415; 80053; 80061; 82607; 82746; 84439; 84443; 85025